=== PATIENT | male | born 1955 | race Caucasian/White ===

== ENCOUNTER 2019-03-16 13:50 | Emergency (ER) | payer OTHER, SELFPAY ==
[2019-03-16 12:03] LABS: Appearance Urine UA SL CLOUDY; Bilirubin Urine UA NEGATIVE (NEGATIVE); Color Urine UA YELLOW; Glucose Urine UA NEGATIVE (Negative); Ketones Urine UA TRACE (NEGATIVE); Leukocyte Esterase Urine UA TRACE (NEGATIVE); Nitrite Urine UA NEGATIVE (Negative); Occult Blood Urine UA 3+ (Negative); Protein Urine UA NEGATIVE (Negative); Specific Gravity Urine UA 1.025 (1.000-1.035); Urobilinogen Urine UA 0.2 E.U./dL (0.2)
[2019-03-16 12:22] LABS: Bacteria Urine Many (>30); Culture Indicated Urine Specimen Cultured; RBC Urine 10-30/HPF (0-5/HPF); Squamous Epithelial Cell Urine 1-5 /HPF (0-5/HPF); WBC Urine 1-5/HPF (0-5/HPF)
[2019-03-16 13:58] VITALS: BP 154/79; PULSE 69; RESP 20; TEMP 37.1; O2SAT 98
[2019-03-16 14:19] VITALS: BP 129/85; PULSE 72; RESP 16; O2SAT 97
--- NOTE | 2019-03-16 14:41 | ED.MALEGU ---
HPI - Male Genitourinary <Ashley Garza PA-C - Last Filed: 03/16/19 20:14> General Chief complaint: Urogenital-Male Stated complaint: blood in urine Time Seen by Provider: 03/16/19 14:02 Source: patient Mode of arrival: ambulatory Limitations: no limitations History of Present Illness HPI Narrative: This 63-year-old male comes the secondary to gross hematuria that started on Saturday. He states this started out as a light pink tinge in the morning, then had bright red blood that he passed along with some tissue looking material that looked like it had blood vessels in it (he brought this in a jar). He states that by Saturday night and yesterday the blood in his urine looked darker, like old blood, and today this morning the urine was still somewhat dark, states it is looking better now, just dark yellow. He states with this he has had pressure and discomfort with urinating, not sandrita dysuria. He has also had increased urgency sensation along with this. He states he feels like he is urinating somewhat less than normal. He denies any nausea or vomiting. He denies any fever, chills, sweats. He states maybe slightly less appetite though he is hungry now. He denies any changes in bowel habits or blood in the stools and is otherwise going about his normal activities. He states he does have a history of urinary frequency/prostate issues and also had an episode of gross hematuria a couple of years ago with some lower abdominal pain that resolved on its own, thought to be possible kidney stone. Related Data Home Medications Medication Instructions Recorded Confirmed aspirin PRN #0 12/13/11 03/16/19 ibuprofen 200 mg PO PRN #0 12/13/11 03/16/19 Previous Rx's Medication Instructions Recorded sulfamethoxazole-trimethoprim 1 tab PO Q12H #10 tab 03/16/19 [Bactrim DS] Allergies Allergy/AdvReac Type Severity Reaction Status Date / Time TETANUS TOXOID Allergy Unknown Uncoded 01/22/18 11:53 Review of Systems <Ashley Garza PA-C - Last Filed: 03/16/19 20:14> Review of Systems ROS Unobtainable: All systems reviewed & are unremarkable except as noted in HPI and below PFSH <Ashley Garza PA-C - Last Filed: 03/16/19 20:14> Medical History (Updated 03/16/19 @ 16:45 by Ashley Garza PA-C) BPH (benign prostatic hyperplasia) (Chronic) Surgical History (Updated 03/16/19 @ 15:02 by Ashley Garza PA-C) Status post tonsillectomy (Resolved) Social History Smoking Status: Current every day smoker Social History Smoking Status: Current every day smoker Exam <Ashley Garza PA-C - Last Filed: 03/16/19 20:14> Narrative Exam Narrative: GENERAL APPEARANCE: Patient sitting comfortably, in no distress. HEENT: PERRL, EOMI, conjunctiva pink NECK: Supple LUNGS: Clear to auscultation bilaterally. HEART: Rate and rhythm regular, normal S1 and S2, no S3 or S4. ABDOMEN: Soft, , nondistended, bowel sounds present x 4 quadrants, no masses palpable, no hepatosplenomegaly, no CVAT. There is moderate suprapubic tenderness without guarding or rebound EXTREMITIES: No edema DERMATOLOGIC: No jaundice or exanthem NEUROLOGIC: Alert and oriented with normal speech and coordination Initial Vital Signs Initial Vital Signs: Vital Signs Temperature 98.8 F 03/16/19 13:58 Pulse Rate 69 03/16/19 13:58 Respiratory Rate 20 03/16/19 13:58 Blood Pressure 154/79 H 03/16/19 13:58 Pulse Oximetry 98 03/16/19 13:58 <Genet Caballero MD - Last Filed: 03/16/19 20:26> Initial Vital Signs Initial Vital Signs: Vital Signs Temperature 98.8 F 03/16/19 13:58 Pulse Rate 69 03/16/19 13:58 Respiratory Rate 20 03/16/19 13:58 Blood Pressure 154/79 H 03/16/19 13:58 Pulse Oximetry 98 03/16/19 13:58 Course <Ashley Garza PA-C - Last Filed: 03/16/19 20:14> Additional Information: Patient has urinated multiple times while here in the ED and states appears normal prior to discharge. He does have bacteriuria along with the hematuria and has had bladder discomfort and urgency. He passed some tissue like material which after discussion we decided not to send for pathology since he does not have a primary care provider for follow-up, however I did dissect this a little bit in there appear to be some tiny hard stones with tissue and dried blood around them. Discussed that if hematuria persists regardless of passing this he needs further workup with probable KUB CT and cystoscopy. Advised treating the infection and then follow up with primary care next week for repeat urinalysis and referral if needed. He is agreeable. States he already was referred to [facility] but then was sent here by their office. He was given information for [facility] to call tomorrow to review insurance and referral. He agreed to return if any acutely worsening symptoms or new symptoms such as abdominal or flank pain, vomiting or fever in the interim. Orders Ordered: ED Orders 03/16/19 14:57 Add on Lab Tests Stat Vital Signs - 8 hr 03/16/19 13:58 03/16/19 14:19 03/16/19 16:55 Temperature 98.8 F Pulse Rate 69 72 78 Respiratory Rate 20 16 12 Blood Pressure 154/79 H 135/84 Blood Pressure [Left Arm] 129/85 Pulse Oximetry 98 97 98 <Genet Caballero MD - Last Filed: 03/16/19 20:26> Orders Ordered: ED Orders 03/16/19 14:57 Add on Lab Tests Stat Vital Signs - 8 hr 03/16/19 13:58 03/16/19 14:19 03/16/19 16:55 Temperature 98.8 F Pulse Rate 69 72 78 Respiratory Rate 20 16 12 Blood Pressure 154/79 H 135/84 Blood Pressure [Left Arm] 129/85 Pulse Oximetry 98 97 98 MDM - Male Genitourinary <Ashley Garza PA-C - Last Filed: 03/16/19 20:14> Lab Data Lab Results 03/16/19 Range/Units 10:59 Urine Color Yellow Urine Appearance Sl cloudy Urine pH 5.0 (4.5-8.0) Ur Specific [place] 1.025 (1.000-1.035) Urine Protein Negative (Negative) Urine Glucose (UA) Negative (Negative) g/dL Urine Ketones Trace H (NEGATIVE) Urine Occult Blood 3+ H (Negative) Urine Nitrate Negative (Negative) Urine Bilirubin Negative (NEGATIVE) Urine Urobilinogen 0.2 (0.2) E.U./dL Ur Leukocyte Esterase Trace H (NEGATIVE) Urine RBC 10-30/hpf H (0-5/HPF) Urine WBC 1-5/hpf (0-5/HPF) Ur Squamous Epith Cells 1-5 /hpf (0-5/HPF) Urine Bacteria Many (>30) H (None) Ur Culture Indicated? Specimen cultured <Genet Caballero MD - Last Filed: 03/16/19 20:26> Lab Data Lab Results 03/16/19 Range/Units 10:59 Urine Color Yellow Urine Appearance Sl cloudy Urine pH 5.0 (4.5-8.0) Ur Specific [place] 1.025 (1.000-1.035) Urine Protein Negative (Negative) Urine Glucose (UA) Negative (Negative) g/dL Urine Ketones Trace H (NEGATIVE) Urine Occult Blood 3+ H (Negative) Urine Nitrate Negative (Negative) Urine Bilirubin Negative (NEGATIVE) Urine Urobilinogen 0.2 (0.2) E.U./dL Ur Leukocyte Esterase Trace H (NEGATIVE) Urine RBC 10-30/hpf H (0-5/HPF) Urine WBC 1-5/hpf (0-5/HPF) Ur Squamous Epith Cells 1-5 /hpf (0-5/HPF) Urine Bacteria Many (>30) H (None) Ur Culture Indicated? Specimen cultured Discharge Plan Departure Patient Disposition: Home Clinical Impression: Gross hematuria Urinary tract infection Qualifiers: Urinary tract infection type: acute cystitis Hematuria presence: with hematuria Qualified Code(s): N30.01 - Acute cystitis with hematuria Discharge Date/Time: 03/16/19 16:55 Interventions: ED Discharge Assessment Last Done: 03/16/19 16:55 Instructions: DI for Urinary Tract Infection (UTI) Activity Restrictions/Additional Instructions: Under the microscope today there is bacteria in your urine, and I suspect that the cause of your bleeding is a urinary tract infection, especially since you have had some discomfort in your bladder area. The lab was not able to look at the tissue that you passed under the microscope, however when I look at it it looks like tissue probably buildup around some small kidney stones. There was some dried clotted blood on there but no blood vessels stuck in there or along the surface. I suspect that maybe the stones caused irritation and this tissue was stuck to them, and there is also an infection. Since your urine looks normal now, we will go ahead and treat you for infection. We will do a urine culture to make sure the antibiotic we gave you treats the infection, but this will take 2 or 3 days to come back. 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 In the interim, as we talked about you should return if you have any acutely worsening symptoms or new symptoms such as fever, vomiting, or new pain. Otherwise, please call the [facility] resource center teacher 1st thing tomorrow at [phone], let them know you were seen in the emergency room and we need to arrange follow-up for you next week, and that you had been previously referred to [facility]. You should do another urinalysis to make sure the blood has resolved. Prescriptions: New sulfamethoxazole-trimethoprim [Bactrim DS] 800-160 mg tablet 1 tab PO Q12H Qty: 10 RF: 0 No Action aspirin 325 MG tablet,delayed release (DR/EC) PRN Qty: 0 RF: 0 ibuprofen 200 MG tablet 200 mg PO PRN Qty: 0 RF: 0 Referrals: [facility] [Provider Group]
--- NOTE | 2019-03-16 15:03 | ED_ITS ---
HPI - Male Genitourinary <Ashley Garza PA-C - Last Filed: 03/16/19 20:14> General Chief complaint: Urogenital-Male Stated complaint: blood in urine Time Seen by Provider: 03/16/19 14:02 Source: patient Mode of arrival: ambulatory Limitations: no limitations History of Present Illness HPI Narrative: This 63-year-old male comes the secondary to gross hematuria that started on Saturday. He states this started out as a light pink tinge in the morning, then had bright red blood that he passed along with some tissue looking material that looked like it had blood vessels in it (he brought this in a jar). He states that by Saturday night and yesterday the blood in his urine looked darker, like old blood, and today this morning the urine was still somewhat dark, states it is looking better now, just dark yellow. He states with this he has had pressure and discomfort with urinating, not sandrita dysuria. He has also had increased urgency sensation along with this. He states he feels like he is urinating somewhat less than normal. He denies any nausea or vomiting. He denies any fever, chills, sweats. He states maybe slightly less appetite though he is hungry now. He denies any changes in bowel habits or blood in the stools and is otherwise going about his normal activities. He states he does have a history of urinary frequency/prostate issues and also had an episode of gross hematuria a couple of years ago with some lower abdominal pain that resolved on its own, thought to be possible kidney stone. Related Data Home Medications Medication Instructions Recorded Confirmed aspirin PRN #0 12/13/11 03/16/19 ibuprofen 200 mg PO PRN #0 12/13/11 03/16/19 Previous Rx's Medication Instructions Recorded sulfamethoxazole-trimethoprim 1 tab PO Q12H #10 tab 03/16/19 [Bactrim DS] Allergies Allergy/AdvReac Type Severity Reaction Status Date / Time TETANUS TOXOID Allergy Unknown Uncoded 01/22/18 11:53 Review of Systems <Ashley Garza PA-C - Last Filed: 03/16/19 20:14> Review of Systems ROS Unobtainable: All systems reviewed & are unremarkable except as noted in HPI and below PFSH <Ashley Garza PA-C - Last Filed: 03/16/19 20:14> Medical History (Updated 03/16/19 @ 16:45 by Ashley Garza PA-C) BPH (benign prostatic hyperplasia) (Chronic) Surgical History (Updated 03/16/19 @ 15:02 by Ashley Garza PA-C) Status post tonsillectomy (Resolved) Social History Smoking Status: Current every day smoker Social History Smoking Status: Current every day smoker Exam <Ashley Garza PA-C - Last Filed: 03/16/19 20:14> Narrative Exam Narrative: GENERAL APPEARANCE: Patient sitting comfortably, in no distress. HEENT: PERRL, EOMI, conjunctiva pink NECK: Supple LUNGS: Clear to auscultation bilaterally. HEART: Rate and rhythm regular, normal S1 and S2, no S3 or S4. ABDOMEN: Soft, , nondistended, bowel sounds present x 4 quadrants, no masses palpable, no hepatosplenomegaly, no CVAT. There is moderate suprapubic tenderness without guarding or rebound EXTREMITIES: No edema DERMATOLOGIC: No jaundice or exanthem NEUROLOGIC: Alert and oriented with normal speech and coordination Initial Vital Signs Initial Vital Signs: Vital Signs Temperature 98.8 F 03/16/19 13:58 Pulse Rate 69 03/16/19 13:58 Respiratory Rate 20 03/16/19 13:58 Blood Pressure 154/79 H 03/16/19 13:58 Pulse Oximetry 98 03/16/19 13:58 <Genet Caballero MD - Last Filed: 03/16/19 20:26> Initial Vital Signs Initial Vital Signs: Vital Signs Temperature 98.8 F 03/16/19 13:58 Pulse Rate 69 03/16/19 13:58 Respiratory Rate 20 03/16/19 13:58 Blood Pressure 154/79 H 03/16/19 13:58 Pulse Oximetry 98 03/16/19 13:58 Course <Ashley Garza PA-C - Last Filed: 03/16/19 20:14> Additional Information: Patient has urinated multiple times while here in the ED and states appears normal prior to discharge. He does have bacteriuria along with the hematuria and has had bladder discomfort and urgency. He passed some tissue like material which after discussion we decided not to send for pathology since he does not have a primary care provider for follow-up, however I did dissect this a little bit in there appear to be some tiny hard stones with tissue and dried blood around them. Discussed that if hematuria persists regardless of passing this he needs further workup with probable KUB CT and cystoscopy. Advised treating the infection and then follow up with primary care next week for repeat urinalysis and referral if needed. He is agreeable. States he already was referred to [facility] but then was sent here by their office. He was given information for [facility] [place] to call tomorrow to review insurance and referral. He agreed to return if any acutely worsening symptoms or new symptoms such as abdominal or flank pain, vomiting or fever in the interim. Orders Ordered: ED Orders 03/16/19 14:57 Add on Lab Tests Stat Vital Signs - 8 hr 03/16/19 13:58 03/16/19 14:19 03/16/19 16:55 Temperature 98.8 F Pulse Rate 69 72 78 Respiratory Rate 20 16 12 Blood Pressure 154/79 H 135/84 Blood Pressure [Left Arm] 129/85 Pulse Oximetry 98 97 98 <Genet Caballero MD - Last Filed: 03/16/19 20:26> Orders Ordered: ED Orders 03/16/19 14:57 Add on Lab Tests Stat Vital Signs - 8 hr 03/16/19 13:58 03/16/19 14:19 03/16/19 16:55 Temperature 98.8 F Pulse Rate 69 72 78 Respiratory Rate 20 16 12 Blood Pressure 154/79 H 135/84 Blood Pressure [Left Arm] 129/85 Pulse Oximetry 98 97 98 MDM - Male Genitourinary <Ashley Garza PA-C - Last Filed: 03/16/19 20:14> Lab Data Lab Results 03/16/19 Range/Units 10:59 Urine Color Yellow Urine Appearance Sl cloudy Urine pH 5.0 (4.5-8.0) Ur Specific [place] 1.025 (1.000-1.035) Urine Protein Negative (Negative) Urine Glucose (UA) Negative (Negative) g/dL Urine Ketones Trace H (NEGATIVE) Urine Occult Blood 3+ H (Negative) Urine Nitrate Negative (Negative) Urine Bilirubin Negative (NEGATIVE) Urine Urobilinogen 0.2 (0.2) E.U./dL Ur Leukocyte Esterase Trace H (NEGATIVE) Urine RBC 10-30/hpf H (0-5/HPF) Urine WBC 1-5/hpf (0-5/HPF) Ur Squamous Epith Cells 1-5 /hpf (0-5/HPF) Urine Bacteria Many (>30) H (None) Ur Culture Indicated? Specimen cultured <Genet Caballero MD - Last Filed: 03/16/19 20:26> Lab Data Lab Results 03/16/19 Range/Units 10:59 Urine Color Yellow Urine Appearance Sl cloudy Urine pH 5.0 (4.5-8.0) Ur Specific [place] 1.025 (1.000-1.035) Urine Protein Negative (Negative) Urine Glucose (UA) Negative (Negative) g/dL Urine Ketones Trace H (NEGATIVE) Urine Occult Blood 3+ H (Negative) Urine Nitrate Negative (Negative) Urine Bilirubin Negative (NEGATIVE) Urine Urobilinogen 0.2 (0.2) E.U./dL Ur Leukocyte Esterase Trace H (NEGATIVE) Urine RBC 10-30/hpf H (0-5/HPF) Urine WBC 1-5/hpf (0-5/HPF) Ur Squamous Epith Cells 1-5 /hpf (0-5/HPF) Urine Bacteria Many (>30) H (None) Ur Culture Indicated? Specimen cultured Discharge Plan Departure Patient Disposition: Home Clinical Impression: Gross hematuria Urinary tract infection Qualifiers: Urinary tract infection type: acute cystitis Hematuria presence: with hematuria Qualified Code(s): N30.01 - Acute cystitis with hematuria Discharge Date/Time: 03/16/19 16:55 Interventions: ED Discharge Assessment Last Done: 03/16/19 16:55 Instructions: DI for Urinary Tract Infection (UTI) Activity Restrictions/Additional Instructions: Under the microscope today there is bacteria in your urine, and I suspect that the cause of your bleeding is a urinary tract infection, especially since you have had some discomfort in your bladder area. The lab was not able to look at the tissue that you passed under the microscope, however when I look at it it looks like tissue probably buildup around some small kidney stones. There was some dried clotted blood on there but no blood vessels stuck in there or along the surface. I suspect that maybe the stones caused irritation and this tissue was stuck to them, and there is also an infection. Since your urine looks normal now, we will go ahead and treat you for infection. We will do a urine culture to make sure the antibiotic we gave you treats the infection, but this will take 2 or 3 days to come back. 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 In the interim, as we talked about you should return if you have any acutely worsening symptoms or new symptoms such as fever, vomiting, or new pain. Otherwise, please call the [facility] health human resources assistant 1st thing tomorrow at [phone], let them know you were seen in the emergency room and we need to arrange follow-up for you next week, and that you had been previously referred to [facility]. You should do another urinalysis to make sure the blood has resolved. Prescriptions: New sulfamethoxazole-trimethoprim [Bactrim DS] 800-160 mg tablet 1 tab PO Q12H Qty: 10 RF: 0 No Action aspirin 325 MG tablet,delayed release (DR/EC) PRN Qty: 0 RF: 0 ibuprofen 200 MG tablet 200 mg PO PRN Qty: 0 RF: 0 Referrals: [facility] [Provider Group]
[2019-03-16 16:55] VITALS: BP 135/84; PULSE 78; RESP 12; O2SAT 98
== END 2019-03-16 16:55 | disposition home or self-care (01) ==
PROVIDERS: Registered Nurse; Emergency Provider Internal Medicine
DX: N30.01 Acute cystitis with hematuria (principal)
CPT/HCPCS: 51798; 81001; 87086; 99283

== ENCOUNTER 2020-11-02 16:05 | Emergency (ER) | payer OTHER, SELFPAY ==
[2020-11-02 16:08] VITALS: BP 148/92; PULSE 81; RESP 18; TEMP 36.4; O2SAT 98
--- NOTE | 2020-11-02 16:33 | DI.RAD.S_ITS ---
PROCEDURE: XR ABDOMEN MIN 2V INDICATIONS: poss block TECHNIQUE: 2 views of the abdomen were acquired. COMPARISON: None. FINDINGS: Surgical changes and devices: None. Bowel: No pneumoperitoneum. The bowel gas pattern is normal. Moderately large right colonic fecal debris and moderate transverse colonic fecal debris. Soft tissues: No masses; visualized solid organ contours appear normal in size. No suspicious abdominal calcifications. Bones: No suspicious bony abnormalities. IMPRESSION: Moderately large fecal load. Dictated by: Minesh Valle M.D. on 11/02/2020 at 16:50 Approved by: Minesh Valle M.D. on 11/02/2020 at 16:50
[2020-11-02 17:34] VITALS: BP 146/73; PULSE 64; RESP 18; O2SAT 96
--- NOTE | 2020-11-02 19:12 | ED.ABDPAIN ---
HPI - Abdominal Pain General Chief Complaint: Abdominal Pain Stated Complaint: Severe diarhea- 8 days Time Seen by Provider: 11/02/20 17:54 Source: patient Mode of arrival: Ambulatory History of Present Illness HPI narrative: Patient complains a days of abdominal distention as well as constipation. Has tried multiple laxatives and enemas/oral hydration/walking without relief. No prior history of constipation. No prior history of colonoscopy or colon cancer. No family history of colon cancer diverticulosis. Nausea but no vomiting. No fever chills cough or congestion. Related Data Home Medications Medication Instructions Recorded Confirmed aspirin PRN #0 12/13/11 03/16/19 ibuprofen 200 mg PO PRN #0 12/13/11 03/16/19 Previous Rx's Medication Instructions Recorded sulfamethoxazole-trimethoprim 1 tab PO Q12H #10 tab 03/16/19 [Bactrim DS] Allergies Allergy/AdvReac Type Severity Reaction Status Date / Time tetanus toxoid, adsorbed Allergy Unknown Verified 11/02/20 19:14 Review of Systems Review of Systems Narrative: GENERAL: Denies chills, fatigue, malaise, fever, sweats. HEENT: Denies sinus pain, ear pain, sore throat, difficulty swallowing RESPIRATORY: Denies dyspnea, cough CARDIOVASCULAR: Denies chest pain, palpitations, edema, GASTROINTESTINAL: Complains of nausea, denies vomiting, abdominal pain, diarrhea, complains constipation, denies melena. : Denies dysuria, frequency, hematuria MUSCULOSKELETAL: denies muscle or bony pain SKIN: Denies rash, skin lesions NEUROLOGIC: Denies weakness, headache, numbness, change in speech, confusion PSYCHIATRIC: No SI or HI or hallucinations ROS Unobtainable: All systems reviewed & are unremarkable except as noted in HPI and below Patient History Medical History BPH (benign prostatic hyperplasia) Surgical History Status post tonsillectomy Social History Smoking Status: Current every day smoker Smoking Status: Current every day smoker alcohol intake frequency: 0-2 drinks per day Substance Use Type: does not use Exam Narrative Exam Narrative: GENERAL: patient appears stated age. Well-nourished, well-developed patient, in no distress, not toxic not dyspneic HEAD: Normocephalic. EYES: Pupils equal round and reactive. No scleral icterus. No injection no discharge ENT: Mucous membranes moist. No drooling no tongue elevation no trismus no malocclusion NECK: Trachea midline. Non tender CARDIOVASCULAR: Regular rate and rhythm without murmurs, gallops, or rubs. RESPIRATORY: Clear to auscultation. Breath sounds equal bilaterally. No wheezes, rales, or rhonchi. GASTROINTESTINAL: Abdomen soft, non-tender, nondistended. EXTREMITIES: No gross deformities. BACK: Nontender without deformity or crepitance. No flank tenderness. NEURO: AOx4. SKIN: Warm and dry PSYCH: Not anxious, is cooperative Initial Vital Signs Initial Vital Signs: Vital Signs Temperature 97.6 F 11/02/20 16:08 Pulse Rate 81 11/02/20 16:08 Respiratory Rate 18 11/02/20 16:08 Blood Pressure 148/92 H 11/02/20 16:08 Pulse Oximetry 98 11/02/20 16:08 Course Course Course Narrative: No new complaints during course of stay. Orders Ordered: ED Orders 11/02/20 19:11 CT abdomen pelvis w con Stat 11/02/20 19:40 Complete Blood Count AUTO DIFF Stat Comprehensive Metabolic Panel Stat Lipase Stat Discontinued Medications Sodium Chloride (Normal Saline 0.9%) 1,000 mls @ 1,000 mls/hr IV BOLUS ONE Stop: 11/02/20 20:09 Last Infusion: 11/02/20 21:15 Dose: 0 mls/hr Documented by: Admin: 11/02/20 19:54 Dose: 1,000 mls/hr Documented by: JANNETH Ondansetron HCl (Ondansetron 4 Mg/2 Ml Inj) 4 mg IV NOW ONE Stop: 11/02/20 20:31 Last Admin: 11/02/20 20:35 Dose: 4 mg Documented by: JANNETH Reevaluation(s) Reevaluation #1: Reviewed results with patient and treatment plan. Patient agrees. Patient is a smoker. Needs cystoscopy of his bladder. He solved local urologist here in town. Patient will resume diet with fruits and vegetables and fiber. Time: 22:14 Vital Signs Vital signs: Vital Signs - 8 hr 11/02/20 22:36 Pulse Rate 82 Respiratory Rate 22 Blood Pressure 158/89 H Pulse Oximetry 98 MDM - Abdominal Pain Differential Diagnosis Differential diagnosis: Likely abdominal pain, acute appendicitis, constipation, diverticulitis and small bowel obstruction Medical Records Attestation: I reviewed the patient's medical records. Lab Data Attestation: I reviewed the patient's lab results. Result diagrams: 11/02/20 19:40 11/02/20 19:40 Labs: Lab Results 11/02/20 11/02/20 Range/Units 19:40 19:40 WBC 10.2 (4.5-11.0) X10^3/uL RBC 5.28 (4.5-5.9) X10^6/uL Hgb 15.7 (13.5-17.5) g/dL Hct 47.4 (41-53) % MCV 89.8 (80-100) fL MCH 29.8 (26-34) PG MCHC 33.2 (30-36) % RDW 14.0 (11.6-14.8) % Plt Count 236 (150-400) X10^3/uL Neut % (Auto) 67.1 (50-75) % Lymph % (Auto) 21.0 L (25-40) % [place] % (Auto) 7.4 (3-14) % Eos % (Auto) 3.7 (2-4) % Baso % (Auto) 0.8 (0-2) % Neut # (Auto) 6900 (8807-3360) /uL Lymph # (Auto) 2100 (3190-6851) /uL [place] # (Auto) 800 (0-900) /uL Eos # (Auto) 400 (0-450) /uL Baso # (Auto) 100 (0-100) /uL Sodium 140 (137-145) mmol/L Potassium 4.4 (3.4-5.1) mmol/L Chloride 108 H (98-107) mmol/L Carbon Dioxide 29 (22-32) mmol/L BUN 12 (9-20) mg/dL Creatinine 0.93 (0.66-1.25) mg/dL Estimated GFR > 60.0 (>60) mL/min BUN/Creatinine Ratio 12.9 (6-22) Glucose 82 (80-110) mg/dL Calcium 9.3 (8.4-10.2) mg/dL Total Bilirubin 1.0 (0.2-1.3) mg/dL AST 29 (17-59) IU/L ALT 19 (<50) IU/L Alkaline Phosphatase 72 (38-126) U/L Total Protein 7.6 (6.3-8.2) g/dL Albumin 4.3 (3.5-5.0) g/dL Globulin 3.3 (1.7-4.1) g/dL Albumin/Globulin Ratio 1.3 (1.0-2.8) Lipase 155 (23-300) U/L Imaging Data Abdominal x-ray: Radiologist's Impression: [address] [id number] ReportSigned Patient: Chago Drummond WMR#: [id number]: 1955cct:[id number]/Sex: 65 / MDate of Service: 11/02/20Loc: EDAccession Number: [id number] Procedure: XR abdomen min 2V Ordering Provider: Ankur Ochoa D.O. PROCEDURE: XR ABDOMEN MIN 2V INDICATIONS: poss block TECHNIQUE: 2 views of the abdomen were acquired. COMPARISON: None. FINDINGS: Surgical changes and devices: None. Bowel: No pneumoperitoneum. The bowel gas pattern is normal. Moderately large right colonic fecal debris and moderate transverse colonic fecal debris. Soft tissues: No masses; visualized solid organ contours appear normal in size. No suspicious abdominal calcifications. Bones: No suspicious bony abnormalities. IMPRESSION: Moderately large fecal load. Dictated by: Minesh Valle M.D. on 11/02/2020 at 16:50 Approved by: Minesh Valle M.D. on 11/02/2020 at 16:50 CT scan - abdomen/pelvis: Radiologist's Impression: [address] [id number] Scan ReportSigned Patient: Chago Drummond WMR#: [id number]: 4Acct:[id number]/Sex: 65 / MDate of Service: 11/02/20Loc: EDAccession Number: [id number] Procedure: CT abdomen pelvis w con Ordering Provider: Jarad Tang MD PROCEDURE: CT ABDOMEN PELVIS W CON INDICATIONS: Abdominal pain/IV contrast only TECHNIQUE: After the administration of intravenous contrast, 5 mm thick sections acquired from the diaphragm to the symphysis. 5 mm coronal and sagittal reformats were acquired. For radiation dose reduction, the following was used: automated exposure control, adjustment of mA and/or kV according to patient size. COMPARISON: None. FINDINGS: Image quality: Excellent. ABDOMEN: Lung bases: Lung bases are clear. Heart size is normal. Solid organs: Liver is normal in size and enhancement. Multiple scattered subcentimeter hepatic hypodensities which are too small to accurately characterize but likely represent hepatic cysts versus hemangiomas. Gallbladder contains multiple layering gallstones near the gallbladder neck. No gallbladder wall thickening or pericholecystic stranding.. Biliary system is non dilated. Pancreas enhances normally. Spleen is normal in size and enhancement. No adrenal nodules. Kidneys demonstrate normal size and enhancement, without hydronephrosis. There are several bilateral renal hypodensities likely representing cysts. The largest on the right measures approximately 1.8 cm in measures fluid attenuation. The largest on the left measures 3.2 x 2.1 cm in measures fluid attenuation. Peritoneum and bowel: Bowel loops demonstrate normal wall thickness and caliber. No free fluid or air. Scattered colonic diverticulosis without evidence for acute diverticulitis. Normal appendix. Nodes and vessels: No retroperitoneal or mesenteric adenopathy by size criteria. Aorta and inferior vena cava are normal in size. Scattered atherosclerotic calcifications of the abdominal aorta and iliac vessels without aneurysmal dilatation. Miscellaneous: No ventral hernias. PELVIS: Genitourinary: Bladder wall thickness is normal. There are 2 irregular, soft tissue density intraluminal lesions within the bilateral posterior wall of the urinary bladder. Both are noted near the ureterovesicular junction. No associated hydroureteronephrosis. Left side measures approximately 1.5 x 2.1 cm (image 75, series 2). Right side measures approximately 1.7 x 1.8 cm (image 73, series 2). No perivesicular stranding. Prostate gland is enlarged. Miscellaneous: No inguinal hernias. No pelvic adenopathy. Bones: No suspicious bony lesions. No acute vertebral body compression fractures. IMPRESSION: 1. There are 2 irregular soft tissue density intraluminal lesions within the urinary bladder. There is 1 adjacent to the right ureterovesicular junction and the 2nd is noted adjacent to the left ureterovesicular junction. No associated hydroureteronephrosis on either side. No perinephric stranding. Findings may represent an intraluminal mass. Hemorrhagic products is conceivable but thought less likely. Recommend correlation with urinalysis and consider urological consultation for outpatient direct visualization. 2. Cholelithiasis without CT evidence for acute cholecystitis. 3. Colonic diverticulosis without acute diverticulitis. 4. Normal appendix. 5. Atherosclerotic vascular disease. No aneurysmal dilatation of the abdominal aorta. 6. Multiple small hepatic hypodensities which are incompletely characterized but likely representing cysts or hemangiomas. 7. Multiple bilateral renal cysts. 8. Prostatomegaly Dictated by: Ronny Dailey M.D. on 11/02/2020 at 21:19 Approved by: Ronny Dailey M.D. on 11/02/2020 at 21:30 MDM Narrative Medical decision making narrative: Appropriate for discharge home and follow-up with urology. Patient does have a urologist but will give patient local urologist as well. Reviewed images and results with patient. Not toxic. Discharge Plan Departure Patient Disposition: Home Clinical Impression: Abdominal pain Qualifiers: Abdominal location: generalized Qualified Code(s): R10.84 - Generalized abdominal pain Instructions: DI for Cystoscopy, DI for Gallstones, DI for Abdominal Pain-Adult Activity Restrictions/Additional Instructions: See family doctor within a week for recheck. Call provided general surgeon regarding gallstone finding on CT scan today. May need a HIDA scan or ultrasound of the gallbladder. Call provided urology office tomorrow to schedule appointment for evaluation for cystoscopy of your bladder. Return if worse or for any questions or concerns. Continue diet with fruits and vegetables and fiber. Prescriptions: No Action aspirin 325 MG tablet,delayed release (DR/EC) PRN Qty: 0 RF: 0 ibuprofen 200 MG tablet 200 mg PO PRN Qty: 0 RF: 0 sulfamethoxazole-trimethoprim [Bactrim DS] 800-160 mg tablet 1 tab PO Q12H Qty: 10 RF: 0 Referrals: Manuel Lane MD [Physician] - Mariano Hardwick MD [Physician] -
[2020-11-02 19:50] LABS: Add Manual Diff / Slide Review NO; Basophils Absolute Auto 100 /uL (0-100); Basophils Percent Auto 0.8 % (0-2); Eosinophils Absolute Auto 400 /uL (0-450); Eosinophils Percent Auto 3.7 % (2-4); Hematocrit 47.4 % (41-53); Hemoglobin 15.7 g/dL (13.5-17.5); Lymphocytes Absolute Auto 2100 /uL (1100-4500); Mean Corpuscular HGB Conc 33.2 % (30-36); Mean Corpuscular Hemoglobin 29.8 PG (26-34); Mean Corpuscular Volume 89.8 fL (80-100); Monocytes Absolute Auto 800 /uL (0-900); Monocytes Percent Auto 7.4 % (3-14); Neutrophils Absolute Auto 6900 /uL (1500-7000); Neutrophils Percent Auto 67.1 % (50-75); Platelet Count 236 X10^3/uL (150-400); Red Blood Cell Count 5.28 X10^6/uL (4.5-5.9); White Blood Cell Count 10.2 X10^3/uL (4.5-11.0)
[2020-11-02] MEDS: SODIUM CHLORIDE 0.9% 1,000 ML 1000 ML IV (19:54)
[2020-11-02 20:02] LABS: Alanine Aminotransferase 19 IU/L (<50); Albumin 4.3 g/dL (3.5-5.0); Albumin Globulin Ratio 1.3 (1.0-2.8); Alkaline Phosphatase 72 U/L (38-126); Aspartate Aminotransferase 29 IU/L (17-59); BUN Creatinine Ratio 12.9 (6-22); Blood Urea Nitrogen 12 mg/dL (9-20); Calcium 9.3 mg/dL (8.4-10.2); Carbon Dioxide 29 mmol/L (22-32); Chloride 108 mmol/L (98-107); Estimated Glomerular Filt Rate > 60.0 mL/min (>60); Globulin 3.3 g/dL (1.7-4.1); Glucose 82 mg/dL (80-110); Lipase 155 U/L (23-300); Potassium 4.4 mmol/L (3.4-5.1); Sodium 140 mmol/L (137-145); Total Protein 7.6 g/dL (6.3-8.2)
[2020-11-02 20:11] LABS: HEMOLYSIS 56 (0-50)
[2020-11-02] MEDS: ONDANSETRON 4 MG/2 ML INJ IV (20:35)
[2020-11-02 22:36] VITALS: BP 158/89; PULSE 82; RESP 22; O2SAT 98
== END 2020-11-02 22:35 | disposition home or self-care (01) ==
PROVIDERS: Emergency Provider Emergency Medicine
DX: R10.84 Generalized abdominal pain (principal); R11.0 Nausea; N40.0 Benign prostatic hyperplasia without lower urinary tract symptoms
CPT/HCPCS: 36415; 74019; 74177; 80053; 83690; 85025; 96361; 96374; 99284; J2405; Q9967

== ENCOUNTER → 2021-08-14 08:23 | Outpatient (CLI) | payer SELFPAY ==
[2021-08-14 09:50] LABS: Prostate Specific Antigen 2.73 ng/mL (0.10-4.00)
== END ==
PROVIDERS: Referring Provider Urology; Visit Provider Urology
DX: N40.0 Benign prostatic hyperplasia without lower urinary tract symptoms (principal); R31.0 Gross hematuria
CPT/HCPCS: 36415; 84153

== ENCOUNTER → 2021-08-28 14:24 | Outpatient (CLI) | payer OTHER, SELFPAY ==
[2021-08-28 15:30] LABS: COVID19 -Nasal RAPID Negative (Negative)
== END ==
PROVIDERS: Referring Provider Urology; Visit Provider Urology
DX: Z20.822 Contact with and (suspected) exposure to COVID-19 (principal)
CPT/HCPCS: 87635; C9803

== ENCOUNTER 2021-08-31 10:20 | Day surgery (SDC) | payer SELFPAY ==
[2021-08-25 07:21] VITALS: BMI 29.2
[2021-08-31] VITALS (8 sets, daily range): BP systolic 132–143; BP diastolic 64–95; PULSE 52–75; RESP 11–16; TEMP 36.1–36.8; O2SAT 97–100; BMI 29.2
--- NOTE | 2021-08-31 | PATH_ITS ---
[facility] Accession Number: [id number] . 01 Material submitted: . bladder - TISSUE BLADDER LESION . 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 Please see Cancer Case Summary: . CANCER CASE SUMMARY . Specimen: Transurethral resecion of bladder tumor (TURBT). . Tumor Tumor site: Not specified. Histologic type: Papillary urothelial carcinoma, noninvasive. Histologic grade: Low grade. Tumor extent: Cannot be determined. Lymphovascular invasion: Not identified. Muscularis propria: Present and uninvolved by tumor. . Additional Findings Negative for invasion into lamina propria. 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 MRV 09/04/2021 1725 Local . 02 Comment: As part of routine corporate quality manager, this case was also reviewed by Dr. Dr. Wesley, who agrees with the interpretation. . 02 Electronically signed: . Genet Robles MD, Pathologist NPI- [id number] . 01 Gross description: . The specimen is received in formalin labeled tissue bladder lesion and consists of multiple castro-pink fragments of soft tissue, measuring 3.0 x 3.0 x 2.0 cm in aggregate. The specimen is filtered and entirely submitted in cassettes A1-A2. (EA:[id number]) /[facility] 09/01/2021 1810 Local . 02 Pathologist provided ICD-10: C67.9 . 02 CPT . 743645 Performed at: 01 [facility] [address] [address], [place], [place] [id number] MD Rinku Gandara MD Phone: [phone] Performed at: 02 [facility] [address] [place] [id number] MD Kelli Saleem MD Phone: [phone]
[2021-08-31] MEDS: LACTATED RINGERS 1,000 ML 42 ML IV (10:47)
--- NOTE | 2021-08-31 11:18 | SUR.OPER ---
Lithotomy on padded OR bed, head on pillow, arms secured on padded arm boards at <90 degrees abduction. Legs secured in padded yellow fins stirrups.
--- NOTE | 2021-08-31 11:22 | PM.PREOP ---
Pre-operative Note COVID-19 COVID-19 status: Negative Result date/Date tested (Pos, Neg/Pending): 08/28/21 Interval Note History & Physical reviewed/Exam performed by Physician: Yes Changes to H&P: No
[2021-08-31] MEDS: CEFAZOLIN 1 GM VIAL 2 GM IV (12:07)
[2021-08-31] MEDS: BELLADONNA/OPIUM SUPPOSITORIES 1 EACH PR (12:35)
--- NOTE | 2021-08-31 12:50 | P.OP_ITS ---
Procedure & Clinicians Procedure: Cystoscopy with transurethral resection of bladder tumor 2 in number each approximately 2-1/2 cm in size Same procedure as scheduled: Yes Indications: This is a 65-year-old male who had gross hematuria and imaging revealed the pres ence of filling defects in the bladder which were consistent with papillary neoplasm. He presents at this time for cystoscopy and if necessary resection of the tumors. (as it turns out the tumors were present and resected. Surgeon: Jarad Cole Click Yes if Unassisted: Yes Anesthesia Type: General Operative Notes Findings: Findings: Urethra normal prostatic fossa which shows moderate obstructive character. Mucosa throughout was normal. Within the bladder the ureteral orifices were normal position with clear efflux. On the right posterior bladder wall was a papillary lesion lateral and anterior to the ureteral orifice on the right is approximately 2.5 cm in diameter. On the left just lateral and just cephalad of the left ureteral orifice is another papillary lesion approximately 2-1/2 cm in diameter. No other abnormalities were noted in the bladder. A 22 [place] 5 cc Pack catheter was left in place with 14 cc in the balloon. Closure Type: not applicable Specimen(s): other (Both the resected tumor fragments were combined and pulled into 1 specimen.) Prosthetic devices, grafts, tissues, transplants, or devices: None Applied: catheter (22 Ethiopian 5 cc 14 cc in the balloon) Estimated Blood Loss (mL): 10 Blood products transfused: none Procedure in detail: Procedure in detail: After informed consent was obtained, patient was identified and brought to the operating room. Patient was then placed in a supine position on the table and anesthesia was induced to maintain. Ensuring an adequate level of anesthesia the patient was transitioned to the lithotomy position. The patient was then prepped, draped, prepared for transurethral procedure in a sterile fashion. After prepping, draping, ensuring an adequate level of anesthesia a 21 Ethiopian cystoscope was passed through the urethra and into the bladder. Cystoscopy is then performed with the 30 and 70 degree lens the findings were noted. A 5 Ethiopian pollock catheter was then placed in the left ureteral orifice and ran up in in the collecting system and left in place. The scope was backed out and the catheter left in place. Resectoscope was then inserted under direct vision. The resecting element was inserted and resection begun on the right tumor. This proved to be in proximity to the obturator nerve and the patient had a brief paralysis to allow safe resection. With this tumor resected and the base fulgurated and a margin cauterized attention was turned to the left-sided tumor which was then also resected. Points of bleeding were controlled with electrocautery fair. Fragments were evacuated collected and sent to pathology for pathologic examination. Again the bladder was filled drained filled drained hemostasis appeared adequate the bladder was left full the [place] catheter was removed and the resectoscope was removed. The [address] catheter was then passed through the urethra prostate in the bladder without difficulty the balloon was filled 14 cc of sterile water and a catheter was placed to gravity drainage. Patient was then awakened taken the postanesthesia care unit having tolerated the procedure well. There were no complications Complications: none Post-operative Condition: stable Disposition: PACU Plan for aftercare: Patient follow-up my office in 2 weeks for catheter removal
--- NOTE | 2021-08-31 13:04 | SUR.PHASEI ---
Report to Dr. Douglas Simms in to speak with pt at bedside.
[2021-08-31] MEDS: PHENAZOPYRIDINE 100 MG TABLET 200 MG PO (13:11)
== END 2021-08-31 14:27 | disposition home or self-care (01) ==
PROVIDERS: Referring Provider Urology; Visit Provider Urology
PROC: 0TBB8ZZ Excision of Bladder, Via Natural or Artificial Opening Endoscopic (ICD-10-PCS; CPT 52235; principal; 2021-08-31 12:15)
DX: C67.9 Malignant neoplasm of bladder, unspecified (principal); F17.210 Nicotine dependence, cigarettes, uncomplicated; E11.9 Type 2 diabetes mellitus without complications; N40.0 Benign prostatic hyperplasia without lower urinary tract symptoms
CPT/HCPCS: 52235; 82962; J0330; J0690; J1100; J2405; J2704; J3010

== ENCOUNTER → 2021-10-30 10:56 | Outpatient (CLI) | payer MEDICARE, SELFPAY ==
[2021-10-30 13:29] LABS: COVID19 -Nasal RAPID Negative (Negative)
== END ==
PROVIDERS: Referring Provider Urology; Visit Provider Urology
DX: Z20.822 Contact with and (suspected) exposure to COVID-19 (principal)
CPT/HCPCS: 87635; C9803

== ENCOUNTER 2023-12-03 08:46 | Emergency (ER) | payer OTHER, SELFPAY ==
[2023-12-03 08:54] VITALS: BP 150/89; PULSE 80; RESP 16; TEMP 36.4; O2SAT 97; BMI 23.7
--- NOTE | 2023-12-03 08:58 | PC.NURSE ---
Pt states 3 days ago at work, working under a boat, walking on a rail about 3 ft above shallow water, slipped and fell hitting his L ribs, L knee, and R flank on steel with numerous metal bolts on it. Bruising to L ribs and R flank. coarse lungs on the L. clear lungs on R. smoker. wearing a hard hat. did not hit his head. no blood thinners. states he takes no meds. ambulatory with steady gait.
--- NOTE | 2023-12-03 09:00 | ED.FALL ---
HPI - Fall General Chief Complaint: Fall Stated Complaint: says he has broke ribs Time Seen by Provider: 12/03/23 08:59 Source: patient Mode of arrival: Ambulatory Limitations: no limitations History of Present Illness HPI Narrative: 68-year-old male with chronic tobacco use who presents with complaint of chest/rib pain. Patient works in [employer] the [employer] he states that he slipped or fell landed on a large piece of steel that had several bolt sticking out of it on his left side several days ago. He states he has a little bit of bruising but has quite a bit of pain and thinks he may have broken his ribs. He also has some bruising on the right flank. Patient states he was quite sore the 1st day or 2 that has been improving but the rib pain has been persistent. Denies hitting his head, no known loss of consciousness. Has pain with cough, sneeze, laughing deep inhalation. Not coughing up any blood. Not short of breath. No GI or urinary symptoms no nausea or vomiting no numbness tingling or weakness. Patient is not on any medications or daily anticoagulants. Allergy to tetanus. Daily smoker, does drink alcohol intermittently, no recreational drugs. Does not have a primary care physician currently. 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 Bladder tumor Constipation Tobacco use disorder Lesion of bladder Gross hematuria BPH (benign prostatic hyperplasia) Surgical History Status post tonsillectomy Family History Mother Cancer Father Diabetes mellitus Social History marital status: unmarried,single number of children: 5 household members: none occupational status: employed Smoking Status: Current every day smoker Tobacco: How many years used: 20 alcohol intake: current Smoking Status: Current every day smoker alcohol intake frequency: 0-2 drinks per day Substance Use Type: does not use Exam Narrative Exam Narrative: GEN: Patient appears in mild distress. HEAD: No evidence of trauma, no raccoon/Amador sign. NECK: Nontender, painless range of motion, trachea midline Negative Nexus criteria, there is no midline line tenderness, distracting injury, altered mental status, neuro deficit, recent EtOH. EYES: PERRLA, EOMI ENT: External inspection normal, trachea is midline, Nares are clear, no septal hematoma, no dental or oral injury, airway is normal and with normal occlusion, No bony tenderness RESP: Chest is tender on the left lateral ribs 4 and 5, there is a small area of greenish ecchymosis with a little bit of underlying hematoma that is about 3 x 4 cm. No tracking down words. No other bony tenderness. Pt has symmetric movement, no ecchymosis, breath sounds are normal no crackles, wheezes or rales CVS: Heart sounds are normal, no murmur noted, No JVD. ABG/GI: Nontender, soft, normal bowel sounds, no distention, no organomegaly, pelvic rock is negative NEURO: Oriented AOx3, neuro is grossly intact, sensation and motor is normal all 4 extremities moving, cranial nerves II through XII are intact, GCS is 15 PSYCH: Normal mood and affect SKIN: Intact, warm and dry, no crepitus and without decubitus, patient has small amount of ecchymosis on the right posterior hip/ASIS region. No bony tenderness. BACK: No CVA tenderness, no vertebral tenderness, no step-off's, no crepitus EXT: Atraumatic, hips are nontender, no pedal edema, normal color and temperature, normal range of motion of extremities with normal tendon exam, 2+ pulses in all four extremities Initial Vital Signs Initial Vital Signs: Vital Signs Temperature 97.6 F 12/03/23 08:54 Pulse Rate 80 12/03/23 08:54 Respiratory Rate 16 12/03/23 08:54 Blood Pressure 150/89 H 12/03/23 08:54 Pulse Oximetry 97 12/03/23 08:54 Oxygen Delivery Method Room Air 12/03/23 08:54 Course Orders Ordered: ED Orders 12/03/23 08:59 XR ribs BI min 4V w CXR1V Stat Discontinued Medications Acetaminophen (Acetaminophen 325 Mg Tablet) 975 mg PO NOW ONE Stop: 12/03/23 10:20 Last Admin: 12/03/23 10:39 Dose: 975 mg Documented By: CTS Ibuprofen (Ibuprofen 400 Mg Tablet) 800 mg PO NOW ONE Stop: 12/03/23 10:20 Last Admin: 12/03/23 10:39 Dose: 800 mg Documented By: CTS Vital Signs Vital signs: Vital Signs - 8 hr 12/03/23 08:54 12/03/23 10:41 Temperature 97.6 F Pulse Rate 80 73 Respiratory Rate 16 16 Blood Pressure 150/89 H 123/75 Pulse Oximetry 97 Oxygen Delivery Method Room Air Room Air MDM - Fall Imaging Data Chest x-ray: Radiologist's Impression: [address] [address] XRay Report Signed Patient: Chago Drummond MR#: [id number] : 1955 Acct:[id number] Age/Sex: 68 / M Date of Service: 12/03/23 Loc: ED Accession Number: [id number] Procedure: XR ribs BI min 4V w CXR1V Ordering Provider: Kristan Cabezas D.O. PROCEDURE: XR RIBS BI MIN 4V W CXR1V INDICATIONS: fall onto steel bar, L ribs / R flank bruising, SOB TECHNIQUE: 4 views of the ribs were acquired, along with a single view chest. COMPARISON: None. FINDINGS: Surgical changes and devices: None. Bones and chest wall: No fractures or dislocations. No suspicious bony lesions. Overlying soft tissues appear unremarkable. Lungs and pleura: No pleural effusions or pneumothorax. Lungs appear clear. Mediastinum: Mediastinal contours appear normal. Heart size is normal. IMPRESSION: No displaced rib fracture or pneumothorax. Dictated by: Nehemiah Askew M.D. on 12/03/2023 at 9:36 Approved by: Nehemiah Askew M.D. on 12/03/2023 at 9:37 MDM Narrative Medical decision making narrative: 68-year-old male with ground level fall landed on a hard piece of steel with a bolt sticking out does have some ecchymosis and hematoma maximum of 3-4 cm in size. Patient has point tenderness over his ribs negative x-ray with no pneumothorax or obvious displaced rib fractures but suspect patient has rib fracture without displacement. Plan for incentive spirometer, pain management, return precautions. Discharge Plan Departure Patient Disposition: Home Clinical Impression: Closed rib fracture Instructions: DI for Rib Fracture Activity Restrictions/Additional Instructions: Please follow-up with your physician for recheck. You do not have any obvious rib fractures but I suspect you do have some nondisplaced rib fractures on your left. Use incentive spirometer once hourly while awake for the next 1-2 weeks. You may take Tylenol up to a 1000 mg every 6 hours as needed for pain and/or ibuprofen up to 600 mg every 6 hours as needed. You can take tramadol 1-2 tablets every 6 hours as needed for pain. This medication can make you sleepy do not drive, perform hazardous activities or make any major decisions while taking it. This medication will make you constipated please take a stool softener once to twice daily until stools are soft and regular. You can use stool softener such as Colace, Dulcolax or senna Prescription sent to [facility] in [place]. Please return for worsening chest pain, shortness of breath, lightheadedness or passing out, coughing up blood, persistent vomiting or other new or concerning changes Prescriptions: New tramadol 50 mg tablet 50 mg PO Q6H PRN (Reason: pain) Qty: 20 0RF Referrals: Miscellaneous,Doctor, [Primary Care Provider] - Stand Alone Forms: Patient Portal/API, Work Release Note
[2023-12-03] MEDS: IBUPROFEN 400 MG TABLET 800 MG PO (10:39)
[2023-12-03] MEDS: ACETAMINOPHEN 325 MG TABLET 975 MG PO (10:39)
[2023-12-03 10:41] VITALS: BP 123/75; PULSE 73; RESP 16
== END 2023-12-03 11:00 | disposition home or self-care (01) ==
PROVIDERS: Emergency Provider Emergency Medicine
DX: S22.32XA Fracture of one rib, left side, initial encounter for closed fracture (principal); W01.198A Fall on same level from slipping, tripping and stumbling with subsequent striking against other object, initial encounter; Y92.89 Other specified places as the place of occurrence of the external cause; Y99.0 Civilian activity done for income or pay
CPT/HCPCS: 71111; 99283

== ENCOUNTER 2024-01-30 21:21 | Emergency (ER) | payer OTHER, SELFPAY ==
[2024-01-30 21:35] VITALS: BP 136/69; PULSE 75; RESP 16; TEMP 36.8; O2SAT 98; BMI 28.8
--- NOTE | 2024-01-30 21:40 | DI.RAD.S_ITS ---
PROCEDURE: XR KNEE LT 3V INDICATIONS: fall/pain TECHNIQUE: 3 views of the knee were acquired. COMPARISON: None. FINDINGS: Bones: No fractures or dislocations. Mild degenerative changes of the knee. No suspicious bony lesions. Soft tissues: Small joint effusion. No suspicious soft tissue calcifications. IMPRESSION: No acute osseous abnormality. If pain persists with conservative management, consider repeat x-ray in 10-14 days or cross-sectional imaging. Dictated by: Nehemiah Askew M.D. on 01/30/2024 at 22:12 Approved by: Nehemiah Askew M.D. on 01/30/2024 at 22:13
[2024-01-30 23:38] VITALS: PULSE 65; O2SAT 95
--- NOTE | 2024-01-30 23:45 | ED.LOWEXIN ---
HPI - Extremity Injury (Lower) General Chief Complaint: Extremity Injury, Lower Stated Complaint: lt knee pain s/p fall at work Time Seen by Provider: 01/30/24 23:45 Source: patient Mode of arrival: Wheelchair History of Present Illness HPI Narrative: 68-year-old gentleman was at work and slipped walking down a graded incline with acute flexion of the left knee. The knee is swollen he is unable to bear weight on the knee. He has not complaining of specific quadricep pain. There was no obvious bleeding but he does have large effusion. He notes he has some minor strained his low back that does not seem to be quite as concerning. He does note that he had another injury on December 03. At that time he had minor strain to the left knee and those symptoms had completely resolved approximately 2 weeks ago. He was feeling well today until he slipped and fell. 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 Bladder tumor Constipation Tobacco use disorder Lesion of bladder Gross hematuria BPH (benign prostatic hyperplasia) Surgical History Status post tonsillectomy Family History Mother Cancer Father Diabetes mellitus Social History marital status: unmarried,single number of children: 5 household members: none occupational status: employed Smoking Status: Current every day smoker Tobacco: How many years used: 20 alcohol intake: current Smoking Status: Current every day smoker tobacco type: cigarettes alcohol intake frequency: a few times a week Substance Use Type: does not use Exam Initial Vital Signs Initial Vital Signs: Vital Signs Temperature 98.3 F 01/30/24 21:35 Pulse Rate 75 01/30/24 21:35 Respiratory Rate 16 01/30/24 21:35 Blood Pressure 136/69 01/30/24 21:35 Pulse Oximetry 98 01/30/24 21:35 Oxygen Delivery Method Room Air 01/30/24 21:35 General: Alert appropriate in no acute distress Respiratory: Able to speak in full sentences, no obvious respiratory distress Skin: No obvious rashes, warm and dry Extremity: Left leg has significant left knee effusion. He is neurovascularly intact. He is tender enough and effusion is significant enough that thorough exam to fully evaluate ligamentous injury is difficult. He does not have specific quadricep tenderness or muscle spasm to suggest a ligamentous rupture Neurologic: Grossly intact no obvious asymmetries or abnormalities Psych: appropriate insight and affect, cooperative Course Orders Ordered: ED Orders 01/30/24 21:40 XR knee LT 3V Stat Vital Signs Vital signs: Vital Signs - 8 hr 01/30/24 21:35 Temperature 98.3 F Pulse Rate 75 Respiratory Rate 16 Blood Pressure 136/69 Pulse Oximetry 98 Oxygen Delivery Method Room Air MDM - Extremity Injury (Lower) MDM Narrative Medical decision making narrative: CC: Left knee injury Data collected from: patient Medical records reviewed: Injury from December 03 is reviewed Differential considered: Knee fracture, dislocation, significant ligamentous injury, quadriceps tendon rupture Exam documented above, pertinent findings include: Left knee effusion significant tenderness, no quadriceps spasm appreciated he is neurovascularly intact distal to this. No other significant injuries appreciated today Imaging studies independently reviewed: X-ray showed no acute bony injury Treatments: Oral Percocet Procedures: Long-leg knee immobilizer as placed by nursing staff. The immobilization is helpful with mobility and pain control. He is neurovascularly intact after placement. He is instructed in use of crutches Discussion: 68-year-old gentleman who fell while he was at work acute flexion left knee injury with significant effusion and concern for internal derangement of the knee. Clinical exam is less suspicious for quadriceps rupture. No bony injuries were identified. He is placed in a knee immobilizer. [facility] for further evaluation and definitive treatment. Patient will need to call to schedule an appointment. Have said that he can return to work on light duty only, tasks that big can be done in a seated position. No extended walking, climbing, stairs, lifting, bending twisting until he is cleared by the orthopedic surgeon. Paperwork has been filled out to that effect. Patient is safe for discharge home Discharge Plan Departure Patient Disposition: Home Clinical Impression: Injury of knee, left Qualifiers: Encounter type: initial encounter Qualified Code(s): S89.92XA - Unspecified injury of left lower leg, initial encounter Instructions: DI for Knee Sprain Activity Restrictions/Additional Instructions: Thank you for coming in today You have clearly injured her knee and have a fairly significant effusion. X-rays do not show any acute fractures however I am concerned with ligamentous injury. You need to use the knee immobilizer for stability to make sure that you do not fall and injure the knee more. You will need follow up with Orthopedic surgery. Please contact [facility] at [phone], explain that you are in the emergency department and fell and injured your left knee and need further evaluation. You likely will need additional imaging in the form of an MRI, however we do need to give the knee a chance to begin healing so the acute inflammation is gone and the imaging study will be more helpful. You can continue to use 2 of the combination ibuprofen Tylenol pills that you have been using. I have given you a single Percocet in the emergency department to help with pain. I have given you for additional pills to use over the next 1-2 days. I would suggest adding 1 Percocet to 2 of the combination ibuprofen/Tylenol pills if needed. Ice to the knee we will be helpful. Keeping the leg elevated and staying off it as much as you were able to will also be helpful If you find that you are getting worse or develop any new symptoms, please feel free to return to the emergency department for further evaluation. You may return to work with only limited duties available. You may do any tasks that are seated. You have to keep the knee immobilizer in place and can not do any extended walking, stairs, bending, twisting, kneeling, lifting or carrying until you have been further evaluated and cleared by the orthopedic surgeon. I have filled out the self ensured injury report to this effect. Prescriptions: No Action tramadol 50 mg tablet 50 mg PO Q6H PRN (Reason: pain) Qty: 20 0RF Referrals: Miscellaneous,Doctor, MD [Primary Care Provider] - Stand Alone Forms: Patient Portal/API, Work Release Note
[2024-01-31 00:03] VITALS: O2SAT 100
[2024-01-31 00:04] VITALS: BP 134/70; PULSE 66; RESP 18; O2SAT 98
[2024-01-31] MEDS: OXYCODONE/ACETAMINOPHEN 5/325 TABLET 1 TAB PO (00:08)
[2024-01-31] MEDS: OXYCODONE/APAP 5/325 PREPACK 1 BOTTLE MISC (00:09)
== END 2024-01-31 00:35 | disposition home or self-care (01) ==
PROVIDERS: Emergency Provider Emergency Medicine
DX: S89.92XA Unspecified injury of left lower leg, initial encounter (principal); W01.0XXA Fall on same level from slipping, tripping and stumbling without subsequent striking against object, initial encounter; Y99.0 Civilian activity done for income or pay
CPT/HCPCS: 73562; 99283

== ENCOUNTER → 2024-02-08 07:06 | Outpatient (CLI) | payer OTHER, SELFPAY ==
--- NOTE | 2024-02-08 07:08 | DI.MRI.S_ITS ---
PROCEDURE: MR KNEE LT WO CON INDICATIONS: Unspecified internal derangement of left knee TECHNIQUE: Noncontrast sagittal PD fast spin echo and T2 fast spin echo with fat saturation, sagittal 3-D FLASH with fat saturation; coronal T1 spin echo and PD fast spin echo with fat saturation, and axial PD fast spin echo with fat saturation through the knee. COMPARISON: [facility] [place], CR, XR KNEE 4+ VIEWS LEFT, 02/04/2024, 10:29. [facility], CR, XR KNEE LT 3V, 01/30/2024, 21:47. FINDINGS: Image quality: Excellent. Menisci: There is medial meniscal extrusion and complex tear of the medial meniscus involving anterior horn, body and posterior horn. The body of the lateral meniscus is truncated. There is a flap tear involving the posterior horn of the lateral meniscus. There is horizontal tear of the anterior horn of the lateral meniscus. Cruciate ligaments: The anterior and posterior cruciate ligaments appear intact. There is mild mucoid degeneration of ACL. Medial structures: The medial collateral ligament appears intact. There is tendinosis of the semimembranosus tendon insertions. The meniscocapsular junction is intact. Visualized portions of the pes anserinus tendons appear normal. No abnormal bursal fluid. Lateral structures: The lateral collateral ligament, long and short heads of the biceps femoris tendon appear intact. The popliteus tendon appears normal. Iliotibial band appears normal. Anterior structures: The quadriceps and patellar tendons appear intact. The distal quadriceps tendon at the patellar insertion is thickened and demonstrates increased signal, consistent with quadriceps tendinitis. There is tendinitis of the distal patellar tendon at the tibial tubercle insertion. Patellar alignment is normal. No femoral trochlear dysplasia or ventral trochlear prominence. No edema in the infrapatellar fat pad. Bones and cartilage: No fractures. There is subchondral edema in the posterior aspect of the medial tibial plateau compatible with bone contusions. There is tricompartmental cartilage thinning and fibrillation. Joint space: There is moderate knee joint fluid. There is a tiny Fraser's cyst. Normal appearing synovial plicae are incidentally noted. There is 1.0 x 0.9 x 0.2 cm intra-articular body in the posterior lateral knee joint. IMPRESSION: 1. Medial meniscal tear as described. 2. Lateral meniscal tear as described. 3. Quadriceps tendinitis and patellar tendinitis. 4. Tendinosis of the semi membranous tendons. 5. Tricompartmental cartilage loss and degeneration. 6. There is an intra-articular body in the posterior lateral knee joint. 7. Bone contusions in the posterior aspect of the medial tibial plateau. Dictated by: Devante Green M.D. on 02/10/2024 at 10:38 Approved by: Devante Green M.D. on 02/10/2024 at 13:08
== END ==
PROVIDERS: Referring Provider Orthopaedic Surgery Foot and Ankle Surgery; Visit Provider Orthopaedic Surgery Foot and Ankle Surgery
DX: S83.232A Complex tear of medial meniscus, current injury, left knee, initial encounter (principal); S83.282A Other tear of lateral meniscus, current injury, left knee, initial encounter; M76.52 Patellar tendinitis, left knee; M23.42 Loose body in knee, left knee; S80.02XA Contusion of left knee, initial encounter
CPT/HCPCS: 73721